=== PATIENT | male | born 1960 | race Caucasian/White ===

== ENCOUNTER → 2017-10-15 | Day surgery (SDC) | payer OTHER ==
[~2017-10-15] MED LIST: ASPIRIN81 MG PO; DYMISTA NASAL S23 GM; FENTANYL CITRATE/PF 100MCG/2 ML INJ ONE; HYOSCYAMINE SULFATE 0.5 MG/ML AMP ONE; LIDOCAINE HCL 2% LOCAL INJ 5 ML SDV VIAL INJ ONE; LISINOPRIL10 MG PO; MIDAZOLAM HCL 2 MG/2 ML VIAL ONE; MULTIVITAMIN PO; NAPROXEN500 MG PO; PRILOSEC PO; PROPOFOL IV EMULSION 10 MG/ML 50 ML VIAL ONE; SYMBICORT 16010.2 GM PO; TRIAMTERENE-HC1 EAC2 PO; VITAMIN E PO; ZANTAC PO
--- NOTE | 2017-10-15 14:01 | Operative Report ---
DATE OF PROCEDURE: October 15, 2017 REFERRING PHYSICIAN: Dr. Erlinda Aviles PROCEDURE PERFORMED: Colonoscopy and polypectomy note. INDICATIONS FOR COLONOSCOPY: Colorectal cancer screening, personal history of colon polyps. MEDICATION: Patient was done under MAC. Please see anesthesiologist's note. PROCEDURE: With the patient in the left lateral decubitus position, the flexible fiberoptic Olympus colonoscope was inserted into the rectum with ease and advanced all the way to the cecum. One polyp was snared from the cecum. The ascending colon grossly appeared to be within normal limits. One polyp was snared from the transverse colon. Diverticular disease was noted to involve the descending and the sigmoid colon. One polyp was hot biopsied from the descending colon. Two polyps were hot biopsied from the sigmoid, and 2 polyps were hot biopsied from the rectum. The scope was then retroflexed into the distal rectum, and small internal hemorrhoids were noted, none of which was actively bleeding. The scope was then straightened out. It was subsequently withdrawn. Patient tolerated the procedure well. IMPRESSION 1. Cecal polyp, snared. 2. Transverse colon polyp, snared times 1. 3. Diverticulosis. 4. Descending colon polyp, hot biopsied. 5. Sigmoid colon polyps times 2, hot biopsied. 6. Rectal polyps times 2, hot biopsied. 7. Internal hemorrhoids, none actively bleeding. PLAN: Follow up histology. Initiate high-fiber, low-fat diet. Initiate high-fiber supplement. Patient will need a followup colonoscopy in 3 years. Job#: [id number] cc:ERLINDA AVILES M.D.
== END | disposition home or self-care (01) ==
LOC: OR 09:19
PROVIDERS: ATTEND Internal Medicine Gastroenterology
DX: Z12.11 Encounter for screening for malignant neoplasm of colon (principal); D12.0 Benign neoplasm of cecum; D12.3 Benign neoplasm of transverse colon; K62.1 Rectal polyp; K21.9 Gastro-esophageal reflux disease without esophagitis; K57.30 Diverticulosis of large intestine without perforation or abscess without bleeding; K64.8 Other hemorrhoids; I10 Essential (primary) hypertension; Z01.810 Encounter for preprocedural cardiovascular examination; Z68.37 Body mass index [BMI] 37.0-37.9, adult; Z80.0 Family history of malignant neoplasm of digestive organs
CPT/HCPCS: 45384; 45385; 93005; J1980; J2001; J2250; 45378